=== PATIENT | male | born 1965 | race Caucasian/White ===

== ENCOUNTER 2023-06-23 09:43 | Emergency (ER) | payer BC, SELFPAY ==
[2023-06-23 09:49] VITALS: BP 114/68; PULSE 66; RESP 16; O2SAT 96
--- NOTE | 2023-06-23 10:00 | DI.RAD_ITS ---
Exam(s) XR ANKLE RT COMPLETE EXAM: XR ANKLE RT COMPLETE CLINICAL HISTORY: twisted and now in pain. TECHNIQUE: 2D digital imaging was performed of the right ankle. Three images were obtained. AP, la teral and oblique views were obtained. COMPARISON: No exams were available for comparison FINDINGS: BONES: On the AP view there is a tiny density at the tip of the lateral malleolus. No bony destructi ve lesion is seen. Small plantar calcaneal spur. JOINTS: The ankle mortise is normally aligned. The joint spaces are well maintained. SOFT TISSUE: Soft tissue swelling of the ankle. IMPRESSION: 1. Tiny density at the tip of the fibula. This is indeterminate but may represent a tiny avulsed fra cture. 2. Soft tissue swelling around the ankle. DATA REPOSITORY: RADIATION DOSE DELIVERED:
--- NOTE | 2023-06-23 10:07 | ED.GENADUL_ITS ---
Discharge Plan Disposition Patient Disposition: Home Condition: Stable Discharge Details Clinical Impression: Right ankle sprain Primary Care Provider: None,None ED Provider: Nikolai Hooper Home Meds and New Rx's Prescriptions: No Action No Known Home Meds Discharge Instructions Instructions: Ankle Sprain (ED) Discharge Data Discharge Physician: Nikolai Hooper Medical Decision Making MDM: Summary: Patient presents emergency department after he sprained his right ankle 2 days ago. Comes in for because it still swollen. He had x-rays done in the emergency department which shows no fracture. The patient has a sprain. He will have an Aircast and will continue using the crutches and NSAIDs at home. Data Review Analysis All the data on this patient was reviewed by me including laboratory and imaging studies as well as bedside studies performed by me Independent review of Studies Imaging Imaging shows no fracture of the right ankle Lab: Risk Stratification: Differential Diagnosis: 1. Ankle sprain 2. Ankle fracture 3. Ankle dislocation 4. 5. Consultants: Shared disposition: Patient understands disposition and agrees that he can go home and will continue with the crutches Impression: HPI General Date/Time Provider Initiated Documentation: 06/23/23 09:59 . HPI Narrative: Patient presents emergency department after he twisted his right ankle 3 days ago and has been wearing crutches to the pharmacy. He states that went to the main emergency department but it was packed so he left. He comes in because continuing swelling and mild tenderness to the medial aspect of his right ankle Related Data Home Medications Medication Instructions Recorded Confirmed Unknown [No Known Home Meds] 06/23/23 06/23/23 Allergies Allergy/AdvReac Type Severity Reaction Status Date / Time No Known Allergies Allergy Unverified 06/23/23 09:55 General Stated Complaint: Orthopedic CONNIE: 4 Review of Systems Narrative: Review of Systems: Constitutional: No fevers, chills, sweats Eye: No recent visual problems ENT: No ear pain, nasal congestion, sore throat Respiratory: No shortness of breath, cough Cardiovascular: No Chest pain, palpitations, syncope Gastrointestinal: No nausea, vomiting, diarrhea Genitourinary: No hematuria Vincent/Lymph: Negative for bruising tendency, swollen lymph glands Endocrine: Negative for excessive thirst, excessive hunger Musculoskeletal: No back pain, neck pain, joint pain, muscle pain, decreased range of motion Integumentary: No rash, pruritus, abrasions Neurologic: Alert & oriented X 4 Psychiatric: No anxiety, depression PFSH All Active Problems (Updated 06/23/23 @ 10:41 by Nikolai Hooper MD) Right ankle sprain (Acute) Social History Smoking/Tobacco Use Status: Former Tobacco Use Smoking risk assessment performed?: Yes Alcohol Intake: current Alcohol Intake frequency: holidays/special occasions only Drug use: Occasionally Substance use type: marijuana Housing: apartment Do you feel safe at home: Yes Do you feel safe in your relationship?: Yes Exam Narrative Exam Narrative: Exam; vitals signs as reported above normal Constitutional; In no acute distress, afebrile General: cooperative, healthy appearing, comfortable and no acute distress HEENT: Head: normal to inspection, no palpable skull fracture and normocephalic atraumatic Eyes: : appearance normal, both eyes and all related structures EOM intact bilaterally Pupils: PERRL : conjunctiva normal Direct ophthalmoscopy: normal light reflex, normal conjunctiva, normal visual acuity Ears: Normal TM, normal external canal Nose: normal no rhinorreha Neck no JVD, supple non tender Neck: normal visual inspection, full ROM and no lymphadenopathy Chest: normal inspection of the chest Respiratory : normal respiratory effort and able to speak in complete sentences no wheezing no rales Cardio Rate: regular rate, rhythm: regular rhythm normal heart sounds S1 and S2 no murmurs, gallops, or rubs GI : normal to inspection, normal bowel sounds, soft, non tender, non distended, no organomegaly Back/Spine/ no CVA tenderness Thoracic/Lumbar Spine: no tenderness or deformities Skin no rashes or lesions Neuro: patient alert oriented x 4 and no meningeal signs, Cranial Nerves: CN's II-XI intact bilaterally, Cognition: normal cognition, Speech: speech normal, Gait: normal gait, Depp tendon reflexes normal 2+ muscle strength 5/[address] Extremities, no edema, full range of motion, normal strength tenderness to the lateral aspect of the right ankle but full range of motion mild dorsal swelling Course Vital Signs Vital signs: Vital Signs Pulse 66 06/23/23 09:49 Respiratory Rate 16 06/23/23 09:49 Blood Pressure 114/68 06/23/23 09:49 Pulse Oximetry 96 06/23/23 09:49 Pulse 66 06/23/23 09:49 Respiratory Rate 16 06/23/23 09:49 Respiratory Effort Normal, Non-Labored 06/23/23 09:55 Blood Pressure 114/68 06/23/23 09:49 Blood Pressure Position Sitting 06/23/23 09:49 Pulse Oximetry 96 06/23/23 09:49 Oxygen Delivery Method Room Air 06/23/23 09:49 Oxygen Flow Rate 0 06/23/23 09:49 PAWSS Have you Been Recently Intoxicated or Drunk Within the Last 30 days?: No Have you Ever Experienced Previous Episodes of Alcohol Withdrawal?: No Have you ever Experienced Withdrawal Seizures?: No Have you ever Experienced Delirium Tremens(DT)s?: No Have you ever undergone Alcohol Rehabilitation Treatment (i.e, inpt ot outpatient treatment programs)?: No Have you ever Experienced Blackouts?: No Have you ever Combined Alcohol with other Downers within the last 90 days?: No Have you ever Combined Alcohol with any other Substance of Abuse during the last 90 days?: No Positive Blood Alcohol level on Presentation? [PCS.BAL]: No Evidence of Increased Autonomic Activity (i.e. HR>120, tremor, sweating, agitation, nausea)?: No Result: 0
== END 2023-06-23 11:04 | disposition home or self-care (01) ==
PROVIDERS: Emergency Provider Emergency Medicine Emergency Medical Services
DX: S93.401A Sprain of unspecified ligament of right ankle, initial encounter (principal); W50.1XXA Accidental kick by another person, initial encounter; Y93.89 Activity, other specified; Y92.833 Campsite as the place of occurrence of the external cause; Y99.9 Unspecified external cause status
CPT/HCPCS: 99283; 73610